=== PATIENT | female | born 1980 | race Caucasian/White ===

== ENCOUNTER 2018-02-26 16:27 | Emergency (ER) | payer OTHER ==
[~2018-02-26] VITALS: Ht 175.3 cm; Wt 138.3 kg
[2018-02-26 16:36] VITALS: Ht 175.3 cm; Wt 138.3 kg
[2018-02-26 17:28] VITALS: BP 140/64
== END 2018-02-26 17:28 | disposition home or self-care (01) ==
LOC: ED 16:27
DX: M65.4 Radial styloid tenosynovitis [de Quervain] (principal)